=== PATIENT | female | born 1990 | race Caucasian/White ===

== ENCOUNTER 2018-09-24 21:22 | Inpatient (IN) | payer MEDICAID ==
[~2018-09-24] VITALS: Ht 162.6 cm; Wt 59.0 kg
[2018-09-24 21:31] VITALS: BP_SYST 138
[2018-09-24] MEDS ORDERED: NACL 0.9% 1,000 ML IV ONE (21:45)
[2018-09-24 22:34] LABS: BASOPHILS # (AUTO) 0.1 K/uL (0.0-0.2); BASOPHILS % (AUTO) 1.1 % (0.0-2.0); HEMATOCRIT 30.7 % (36-48); HEMOGLOBIN 9.6 g/dL (12.0-16.0); LYMPHOCYTES # (AUTO) 1.4 K/uL (1.0-5.5); LYMPHOCYTES % (AUTO) 28.9 % (20.5-51.5); MEAN CORPUSCULAR HEMOGLOBIN 21 pg (27-31); MEAN CORPUSCULAR HGB CONC 31 % (32-36); MEAN CORPUSCULAR VOLUME 68 fL (79.0-98.0); MONOCYTES # (AUTO) 0.3 K/uL (0.0-1.0); MONOCYTES % (AUTO) 6.8 % (1.7-9.3); NEUTROPHILS # (AUTO) 2.9 K/uL (1.8-7.7); NEUTROPHILS % (AUTO) 62.2 % (40.0-70.0); PLATELET COUNT (AUTO) 209 K/uL (130-430); RED BLOOD CELL COUNT(AUTO) 4.55 MIL/uL (4.2-6.2); RED CELL DISTRIBUTION WIDTH 17.4 % (9.0-15.0); WHITE BLOOD COUNT (AUTO) 4.7 K/uL (4.8-10.8)
[2018-09-24 22:36] LABS: CREATININE 0.5 mg/dL (0.55-1.30); POTASSIUM 3.3 mmol/L (3.5-5.1)
[2018-09-24 22:39] LABS: PROTHROMBIN TIME 10.7 SECS (9.5-12.5)
[2018-09-24 22:41] LABS: ALBUMIN 4.1 g/dL (3.4-4.8); TOTAL BILIRUBIN 0.3 mg/dL (0.0-1.0)
[2018-09-24 23:00] LABS: BILIRUBIN,URINE NEGATIVE (NEGATIVE); BLOOD, URINE 2+ (NEGATIVE); CLARITY/URINE CLEAR (CLEAR); COLOR,URINE YELLOW (YELLOW); GLUCOSE,URINE NEGATIVE (NEGATIVE); KETONES,URINE NEGATIVE (NEGATIVE); LEUKOCYTE ESTERASE ,URINE NEGATIVE (NEGATIVE); NITRITE, URINE NEGATIVE (NEGATIVE); PROTEIN URINE NEGATIVE (NEGATIVE); UROBILINOGEN,URINE 0.2 (0.2-1.0)
[2018-09-24 23:07] LABS: BACTERIA,URINE None Seen /HPF (None Seen); WBC,URINE 0-3 /HPF (0-3)
[2018-09-24 23:12] LABS: BARBITURATE, URINE NEGATIVE (NEG <=200); BENZODIAZEPINE, URINE NEGATIVE (NEG <=150); CANNABINOID, URINE NEGATIVE (NEG <=50); COCAINE, URINE NEGATIVE (NEG <=150); METHAMPHETAMINES SCREEN,URINE NEGATIVE (NEG <=500); OPIATE, URINE NEGATIVE (NEG <=100); PHENCYCLIDINE SCREEN,URINE NEGATIVE (NEG <=25); UR TRICYCLIC ANTIDEPRESSANTS NEGATIVE (NEG <=300); URINE AMPHETAMINE NEGATIVE (NEG <=500); URINE METHADONE NEGATIVE (NEG <=200); URINE OXYCODONE SCREEN NEGATIVE (NEG <=100); URINE PROPOXYPHENE SCREEN NEGATIVE (NEG <=300)
[2018-09-25] VITALS (14 sets, daily range): BP systolic 115–151
[2018-09-25] MEDS ORDERED: LORazepam 2 MG/ML VIAL IVP PRN (08:30)
[2018-09-25] MEDS ORDERED: ACETYLCYSTEINE IV 0 MG in D5W 200 ML IV ONE (08:45)
[2018-09-25] MEDS ORDERED: ACETYLCYSTEINE IV ONE ×3 (09:00→14:00)
[2018-09-25] MEDS ORDERED: D5W IV ONE ×3 (09:00→14:00)
[2018-09-25 09:08] LABS: ACETAMINOPHEN 45 ug/mL (1-30)
[2018-09-25] MEDS ORDERED: POTASSIUM CHLORIDE 20 MEQ TAB.PRT.SR PO ONE (11:30)
[2018-09-25] MEDS ORDERED: DIPHENHYDRAMINE INJ 50 MG/ML VIAL IVP PRN (11:45)
[2018-09-25] MEDS: FAMOTIDINE PF 20 MG/2 ML VIAL IVP SCH ×2 (11:45→20:13)
[2018-09-25] MEDS ORDERED: METOCLOPRAMIDE HCL 10 MG/2 ML VIAL IVP PRN (12:00)
[2018-09-25] MEDS ORDERED: POTASSIUM CHLORIDE 40 MEQ, LIDOCAINE JECT 2% PF 100 MG 50 MG in NS 250 ML IV ONE (12:00)
[2018-09-25] MEDS: D5LR 1,000 ML IV SCH ×2 (14:32→22:00)
[2018-09-26] VITALS (24 sets, daily range): BP systolic 108–141
[2018-09-26] MEDS: D5LR 1,000 ML IV SCH ×3 (01:34→20:41)
[2018-09-26 06:53] LABS: CALCIUM 8.5 mg/dL (8.4-11.0); CREATININE 0.66 mg/dL (0.55-1.30); POTASSIUM 3.6 mmol/L (3.5-5.1); TOTAL BILIRUBIN 0.5 mg/dL (0.0-1.0)
[2018-09-26 07:41] LABS: BASOPHILS % (AUTO) 0.4 % (0.0-2.0); EOSINOPHILS % (AUTO) 0.8 % (0.0-4.0); HEMATOCRIT 27.8 % (36-48); HEMOGLOBIN 8.8 g/dL (12.0-16.0); LYMPHOCYTES # (AUTO) 1.5 K/uL (1.0-5.5); LYMPHOCYTES % (AUTO) 29.2 % (20.5-51.5); MEAN CORPUSCULAR HEMOGLOBIN 21 pg (27-31); MEAN CORPUSCULAR HGB CONC 32 % (32-36); MEAN CORPUSCULAR VOLUME 68 fL (79.0-98.0); MONOCYTES # (AUTO) 0.2 K/uL (0.0-1.0); NEUTROPHILS # (AUTO) 3.3 K/uL (1.8-7.7); NEUTROPHILS % (AUTO) 65.6 % (40.0-70.0); PLATELET COUNT (AUTO) 187 K/uL (130-430); RED BLOOD CELL COUNT(AUTO) 4.11 MIL/uL (4.2-6.2); RED CELL DISTRIBUTION WIDTH 17.2 % (9.0-15.0)
[2018-09-26] MEDS: FAMOTIDINE PF 20 MG/2 ML VIAL IVP SCH ×2 (08:35→20:38)
[2018-09-26] MEDS ORDERED: D5W IV ONE ×2 (10:30→12:15)
[2018-09-26] MEDS ORDERED: ACETYLCYSTEINE IV ONE ×2 (10:30→12:15)
[2018-09-27] VITALS (19 sets, daily range): BP systolic 106–143
[2018-09-27 06:07] LABS: BASOPHILS # (AUTO) 0.1 K/uL (0.0-0.2); BASOPHILS % (AUTO) 2.1 % (0.0-2.0); EOSINOPHILS # (AUTO) 0.1 K/uL (0.0-0.4); EOSINOPHILS % (AUTO) 2.5 % (0.0-4.0); HEMATOCRIT 27.8 % (36-48); HEMOGLOBIN 8.6 g/dL (12.0-16.0); LYMPHOCYTES # (AUTO) 1.6 K/uL (1.0-5.5); LYMPHOCYTES % (AUTO) 31.4 % (20.5-51.5); MEAN CORPUSCULAR HEMOGLOBIN 21 pg (27-31); MEAN CORPUSCULAR HGB CONC 31 % (32-36); MEAN CORPUSCULAR VOLUME 69 fL (79.0-98.0); MONOCYTES # (AUTO) 0.3 K/uL (0.0-1.0); MONOCYTES % (AUTO) 6.8 % (1.7-9.3); NEUTROPHILS # (AUTO) 2.9 K/uL (1.8-7.7); NEUTROPHILS % (AUTO) 57.2 % (40.0-70.0); PLATELET COUNT (AUTO) 185 K/uL (130-430); RED BLOOD CELL COUNT(AUTO) 4.02 MIL/uL (4.2-6.2); RED CELL DISTRIBUTION WIDTH 17.5 % (9.0-15.0)
[2018-09-27 06:23] LABS: CALCIUM 8.5 mg/dL (8.4-11.0); CREATININE 0.53 mg/dL (0.55-1.30); POTASSIUM 3.5 mmol/L (3.5-5.1); TOTAL BILIRUBIN 0.3 mg/dL (0.0-1.0)
[2018-09-27] MEDS: D5LR 1,000 ML IV SCH (08:37)
[2018-09-27] MEDS: FAMOTIDINE PF 20 MG/2 ML VIAL IVP SCH (08:38)
== END 2018-09-27 21:35 | disposition home or self-care (01) | DRG 817 ==
LOC: SED 21:22 → SIC 09-25 08:30
PROVIDERS: ADMIT Internal Medicine; ATTEND Internal Medicine
DX: T39.1X2A Poisoning by 4-Aminophenol derivatives, intentional self-harm, initial encounter (principal); R45.851 Suicidal ideations; E87.6 Hypokalemia; F10.129 Alcohol abuse with intoxication, unspecified; T65.892A Toxic effect of other specified substances, intentional self-harm, initial encounter; F32.9 Major depressive disorder, single episode, unspecified; Y92.89 Other specified places as the place of occurrence of the external cause
CPT/HCPCS: 36415; 71045; 80053; 80307; 81000-TC; 82140-TC; 84703; 85025; 85610-TC; 85730-TC; 87081; 93005; 96361; 96365; 99285; G0480; G0481; G0482; J0132; J3480; J3490; J7030; J7050; J7060; J7120